=== PATIENT | female | born 1960 | race Caucasian/White ===

== ENCOUNTER 2016-03-10 19:36 | Emergency (ER) | payer OTHER ==
[~2016-03-10] VITALS: Ht 162.6 cm; Wt 140.0 kg
[2016-03-10 19:39] VITALS: BP 146/82; PULSE 85; RESP 16; TEMP 98.3; O2SAT 95
[2016-03-10] MEDS ORDERED: SIMV20TA PO (20:06)
[2016-03-10] MEDS ORDERED: ASPI81CH CHEW (20:06)
[2016-03-10] MEDS ORDERED: LEVO75TA3 PO (20:06)
[2016-03-10] MEDS ORDERED: NOVOLOGP2 SQ (20:06)
[2016-03-10] MEDS ORDERED: MEDR2.5T2 PO (20:06)
[2016-03-10] MEDS ORDERED: ESTR0.5T PO (20:06)
[2016-03-10] MEDS ORDERED: LISI-519 PO (20:06)
--- NOTE | 2016-03-10 20:08 | PD ---
HPI Chief Complaint: Injury Time Seen by Provider: 20:05 Travel History International Travel<30 days: No Contact w/Intl Traveler<30days: No Traveled to known affect area: No History of Present Illness HPI . PFSH Past Medical History Tetanus Vaccination: < 5 Years Influenza Vaccination: No ?: Not Past Surgical History Hysterectomy: Yes Other Surgery: Yes (MICROSCOPIC HERNIA , ) Social History Alcohol Use: No Tobacco Use: No Substance Use: No Allergies-Medications (Allergen,Severity, Reaction): Coded Allergies: No Known Allergies (Unverified , 03/10/16) Reported Meds & Prescriptions Reported Meds & Active Scripts Active Review of Systems Musculoskeletal: Positive: Arthralgias, Limited ROM, Edema, Pain Skin: No Rash, No Itching Physical Exam Narrative . Data Data Last Documented VS Vital Signs Date Time Temp Pulse Resp B/P Pulse Ox O2 Delivery O2 Flow Rate FiO2 03/10/16 19:39 98.3 85 16 146/82 95 Room Air Orders MDM Medical Decision Making Medical Screen Exam Complete: Yes Emergency Medical Condition: Yes Medical Record Reviewed: Yes Interpretation(s) This report is in ERROR Please disregard this report and all prior copies ! This report is in ERROR Please disregard this report and all prior copies ! This report is in ERROR Please disregard this report and all prior copies ! Differential Diagnosis MDM: High Differential diagnoses: Fracture, sprain, strain, dislocation, contusion, neurovascular injury Narrative Course Patient is given ice pack. X-rays of the right knee. Patient Instructions: General Instructions Condition: Ronnell Man Mar 10, 2016 20:08 Medical Screen Exam Complete: Yes Emergency Medical Condition: Yes Medical Record Reviewed: Yes Differential Diagnosis MDM: High Differential diagnoses: Fracture, sprain, strain, dislocation, contusion, neurovascular injury Narrative Course Patient is given ice pack. X-rays of the right knee. Patient Instructions: General Instructions Condition: Stable Ronnell Munroe Mar 10, 2016 20:08 [facility] Medical Decision Making Medical Screen Exam Complete: Yes Emergency Medical Condition: Yes Medical Record Reviewed: Yes Differential Diagnosis MDM: High Differential diagnoses: Fracture, sprain, strain, dislocation, contusion, neurovascular injury Narrative Course Patient is given ice pack. X-rays of the right knee. Patient Instructions: General Instructions Condition: Stable Ronnell Munroe Mar 10, 2016 20:08
--- NOTE | 2016-03-10 20:35 | PD ---
HPI Chief Complaint: Injury Time Seen by Provider: 20:31 Travel History International Travel<30 days: No Contact w/Intl Traveler<30days: No Traveled to known affect area: No History of Present Illness HPI 56-year-old white female presents to emergency department for evaluation of right foot pain after tripping and falling after stepping in dog pee yesterday. She states that she also injured her right knee but does not feel that is significantly injured. She has noted increasing pain, swelling and bruising to the right foot. She did not hurt her head, neck or back. She denies any numbness, tingling or weakness. Denies diabetes. PFSH Past Medical History Narrative Medical Denies diabetes and hypertension Tetanus Vaccination: < 5 Years Influenza Vaccination: No ?: Not Past Surgical History Narrative Surgical Hysterectomy, herniorrhaphy, bilateral knee replacement, right foot bunionectomy Hysterectomy: Yes Other Surgery: Yes (MICROSCOPIC HERNIA , ) Social History Alcohol Use: No Tobacco Use: No Substance Use: No Allergies-Medications (Allergen,Severity, Reaction): Coded Allergies: No Known Allergies (Unverified , 03/10/16) Reported Meds & Prescriptions Reported Meds & Active Scripts Active Review of Systems Except as stated in HPI: all other systems reviewed are Neg Physical Exam Narrative GENERAL: Well-developed, well-nourished in no apparent distress. Nontoxic appearing. HEAD: Normocephalic, atraumatic. EYES: Pupils equal round and reactive. Extraocular motions intact. No scleral icterus. No injection or drainage. ENT: Nose clear. Throat without erythema, tonsillar hypertrophy or exudate. Uvula midline. Airway patent. NECK: Trachea midline. Supple, nontender, moves head freely. No central bony tenderness or spasm. CARDIOVASCULAR: Regular rate and rhythm without murmurs, gallops, or rubs. RESPIRATORY: Clear to auscultation. Breath sounds equal bilaterally. No wheezes , rales, or rhonchi. GASTROINTESTINAL: Abdomen soft, non-tender, nondistended. No hepato-splenomegaly , or palpable masses. No guarding. EXTREMITIES: No clubbing, cyanosis, examination of the upper extremities as well as the left lower extremity reveals no obvious bony deformity or tenderness. The right lower extremity reveals pain to the distal forefoot along the first, second, third metatarsals. There is mild swelling and ecchymosis. The skin is intact. No pain in the heel, Achilles, ankle or proximal forefoot. She has intact gross sensation with good distal pulses. Patient has mild soft tissue tenderness in the knee but has full range of motion without instability. No pain in the hip. The patient is able to ambulate and bear weight with only minimally antalgic gait. BACK: Nontender without deformity. No flank tenderness. NEUROLOGICAL: Awake, alert and oriented x 3 .Cranial nerves grossly intact. Motor and sensory grossly within normal limits. Normal speech. Data Data Last Documented VS Vital Signs Date Time Temp Pulse Resp B/P Pulse Ox O2 Delivery O2 Flow Rate FiO2 03/10/16 19:39 98.3 85 16 146/82 95 Room Air Orders Foot, Complete ([id number]) (03/10/16 20:30) Ice/Cold Pack (03/10/16 20:30) MDM Medical Decision Making Medical Screen Exam Complete: Yes Emergency Medical Condition: Yes Medical Record Reviewed: Yes Interpretation(s) Right foot: Patient has irregularities at the bases of the great, second, third toes. I suspect there may be nondisplaced fractures. Patient has a moderate amount of arthritis. Differential Diagnosis MDM: High Differential diagnoses: Fracture, sprain, strain, dislocation, contusion, neurovascular injury Narrative Course Patient is given Lortab 5 a grams by mouth. Patient is placed in an Ortho- Glass. This is right foot first, second, third toe fractures Diagnosis Primary Impression: right foot first, second, third toe fractures Patient Instructions: General Instructions Additional Instructions: Rest. Elevation. Ice packs for the next 3 days. Or so boot. weight-bearing as tolerated. Medications as directed Follow-up with an front desk supervisor in one week. Return to the ER if any problems Med/Other Pt SpecificInfo: Prescription(s) given Disposition: 01 DISCHARGE HOME Condition: Stable Ronnell Munroe Mar 10, 2016 20:35
--- NOTE | 2016-03-10 20:56 | RADRPT ---
EXAM DATE/TIME: 03/10/2016 20:47 [facility] COMPARISON: No previous studies available for comparison. INDICATIONS : Right foot pain post fall MEDICAL HISTORY : None. SURGICAL HISTORY : Bunion removal on right foot. ENCOUNTER: Initial ACUITY: 2 days PAIN SCORE: 9/10 LOCATION: Left foot FINDINGS: Bone density is normal. Joint space widths are intact. There are postsurgical changes involving the f irst metatarsal with 2 screws identified traversing the shaft. No acute appearing displaced ossific f ragment off the medial base of the second proximal phalanx identified. This should be correlated for point tenderness. Plantar heel spur. CONCLUSION: No definite evidence for acute fracture. Please see above. Cain Santamaria MD on March 10, 2016 at 20:54 Board Certified Radiologist. This report was verified electronically.
[2016-03-10] MEDS ORDERED: CITA10TA4 PO (21:04)
[2016-03-10] MEDS ORDERED: arthritis (21:04)
[2016-03-10] MEDS ORDERED: LUMI0.01 EACH EYE (21:04)
[2016-03-10] MEDS ORDERED: HYDR-3533 PO (21:05)
[2016-03-10] MEDS ORDERED: ACETAMINOPHEN/HYDROcodone 325 MG/5 MG TAB PO ONE (21:15)
== END 2016-03-10 21:51 | disposition home or self-care (01) ==
LOC: NEPB 19:36
DX: S92.324A Nondisplaced fracture of second metatarsal bone, right foot, initial encounter for closed fracture (principal); S92.314A Nondisplaced fracture of first metatarsal bone, right foot, initial encounter for closed fracture; W01.0XXA Fall on same level from slipping, tripping and stumbling without subsequent striking against object, initial encounter; Y93.9 Activity, unspecified; Y92.9 Unspecified place or not applicable; Y99.9 Unspecified external cause status
CPT/HCPCS: 73630; 99283; L2114